=== PATIENT | female | born 1980 | race African-American/Black ===

== ENCOUNTER 2023-05-22 09:02 | Emergency (ER) | payer BC ==
[~2023-05-22] VITALS: Ht 175.3 cm; Wt 113.4 kg
--- NOTE | 2023-05-22 09:09 | NUR ---
BIBS C/O ITCHING AND DISCHARGE X2 DAYS DID A [place]ET[place] TEST AND POSITIVE FOR TRICHOMONIASIS, CURRENTLY NOT ON ANTIBIOTICS. VITALS ARE WITHIN NORMAL LIMITS.
--- NOTE | 2023-05-22 09:11 | NUR ---
BIBS C/O ITCHING AND DISCHARGE X2 DAYS DID A [place]ET[place] TEST AND POSITIVE FOR TRICHOMONIASIS, CURRENTLY NOT ON ANTIBIOTICS
[2023-05-22] MEDS ORDERED: METRONIDAZOLE 500 MG TABLET ONE (09:28)
[2023-05-22] MEDS ORDERED: AZITHROMYCIN 250 MG TABLET ONE ×2 (09:28→09:45)
[2023-05-22] MEDS ORDERED: AZITHROMYCIN 250 MG TABLET PO ONE (09:30)
[2023-05-22] MEDS ORDERED: METRONIDAZOLE 500 MG TABLET PO ONE (09:30)
[2023-05-22 09:56] VITALS: BP 119/64; TEMP 98; O2SAT 100
--- NOTE | 2023-05-22 09:56 | NUR ---
Patient discharged to home in stable condition. Written and verbal after care instructions given. Patient verbalizes understanding of instruction.
== END 2023-05-22 09:57 | disposition home or self-care (01) ==
LOC: ER 09:12
DX: N89.8 Other specified noninflammatory disorders of vagina (principal); Z88.0 Allergy status to penicillin; Z88.8 Allergy status to other drugs, medicaments and biological substances
CPT/HCPCS: 36415; 87806